=== PATIENT | male | born 1980 | race Two or more races ===

== ENCOUNTER 2022-12-17 05:22 | Emergency (ER) | payer OTHER ==
[~2022-12-17] VITALS: Ht 195.6 cm; Wt 112.5 kg
[~2022-12-17 05:22] MED LIST: MICARDIS HCT1 UDTA1
[2022-12-17] MEDS ORDERED: IRBESARTAN150 MG PO (05:36)
== END 2022-12-17 06:20 | disposition home or self-care (01) ==
LOC: ER 05:22
DX: M62.830 Muscle spasm of back (principal); Z91.013 Allergy to seafood